=== PATIENT | male | born 1940 | race Caucasian/White ===

== ENCOUNTER 2018-09-22 17:26 | Emergency (ER) | payer OTHER ==
--- NOTE | 2018-09-22 17:36 | EDPHY ---
HPI/HX/ROS/PE/MDM Narrative: CHIEF COMPLAINT: Chest pain, neck pain, chills, nausea/vomiting HPI: This patient is an anticoagulated 78 year old male with history of hypertension , hyperlipidemia, atrial fibrillation, diabetes mellitus. He arrives today with his family complaining of chest pain, neck pain, chills, nausea, and vomiting. His symptoms began last night when he woke from sleep with a neck ache and chest discomfort. He endorses nausea and had several episodes of vomiting. Today , he has had nothing to eat or drink and continues to complain of neck pain and chest discomfort. The chest pain is intermittent, lasting several seconds, and is sometimes sharp, sometimes dull. His family at bedside noted he had an episode of shivering about one hour prior to arrival, but this has resolved. The patient denies headache, shortness of breath, diarrhea, numbness or tingling in his extremities, or other associated symptoms. REVIEW OF SYSTEMS: A comprehensive 10 system review of systems is otherwise negative aside from elements mentioned in the history of present illness and medical decision making. PMH: Hypertension (metoprolol, lisinopril), hyperlipidemia (pravastatin), atrial fibrillation , diabetes mellitus (metformin). Pacemaker placed. SOCIAL HISTORY: [employer] in [place]. Family at bedside. . PHYSICAL EXAM: General:Patient is alert, in no acute distress. ENT:Eyes are normal to inspection. ENT inspection normal. Neck: Normal inspection. Full range of motion. Respiratory:No respiratory distress. Breath sounds normal bilaterally. Cardiovascular: Regular rate and rhythm. Strong peripheral pulses. Normal cap refill. Abdomen:The abdomen is nontender to palpation. There are no peritoneal signs. There are normal bowel sounds. Back: Normal to inspection. No tenderness to palpation. Skin: Normal color. No rash. Warm and dry. Extremities: Normal appearance. Full range of motion. Neuro: Oriented x3. Normal motor function. Normal sensory function. ED Course: 78 year old male with history of hypertension, hyperlipidemia, atrial fibrillation, diabetes mellitus presents with chest pain, neck pain, chills, nausea, and vomiting. Plan for EKG, chest x-ray, labs including CBC, chemistries , troponin, co-ag panel, d-dimer. Plan to administer 1l IV NS and 4mg IV Zofran for symptom relief. EKG was ordered and interpreted by myself. Please see [employer] system for official reading. Reviewed laboratory studies. Troponin negative. D-dimer is elevated at 0.85. The patient is anticoagulated, on Eliquis. No shortness of breath. CXR negative for pneumonia. Reassessed patient. Discussed imaging and laboratory results. I offered admission as well as further testing including CTA chest to r/o PE or other acute processes. THe patient and his family decline and would like to be discharged home. They understand my recommendation for admission and continue to wish to go home at this time. Plan to discharge home in good condition. Follow up and strict return precautions discussed. The patient and his family are aware that he may return to the emergency department at ay time for persistent or worsening symptoms. They are comfortable with this plan. MDM: This patient presents with a multitude of symptoms - of most concern is chest pain, but this is fairly atypical, lasting only a second at a time and alternately sharp or dull. He complains of neck pain but also says this is chronic. He was initially nauseated but this, as well as all his symptoms, have now resolved. I had an extensive discussion with the patient and multiple family members in the room. I explained that I see no signs of ACS, but that the patient's risk factors place him at elevated risk and that the safest course of action would be to admit him overnight for additional testing and evaluation. The patient refuses this however and would like to go home. They tell me that they live [place] [address] from [facility] where they get all their care, and would prefer to go home and go to that hospital if symptoms recur. I explained that the ECG is abnormal and that I have no comparison available. They understand this. The patient also initially indicated that he was on Coumadin, but apparently was switched to Eliquis two weeks ago which he has been taking faithfully. I think given this new fact, PE is unlikely. I offered them this test as well, which they also refused. - Data Points Imaging Results: Imaging Impressions Chest X-Ray 09/22/18 17:28 Impression: 1. Suspect airways disease. 2. See above report for additional findings. Imaging: I viewed and interpreted images myself Laboratory Results: Laboratory Results 09/22/18 17:40 09/22/18 17:40 09/22/18 09/22/18 09/22/18 17:47 17:40 17:40 WBC RBC Hgb Hct MCV MCH MCHC RDW Plt Count MPV Neut % (Auto) Lymph % (Auto) [place] % (Auto) Eos % (Auto) Baso % (Auto) Nucleat RBC Rel Count Absolute Neuts (auto) Absolute Lymphs (auto) Absolute Monos (auto) Absolute Eos (auto) Absolute Basos (auto) Absolute Nucleated RBC Immature Gran % Immature Gran # PT 15.1 SEC H SEC (12.0-15.0) INR 1.24 H (0.83-1.16) APTT 34.6 SEC SEC (23.0-38.0) D-Dimer 0.85 ug/mLFEU H ug/mLFEU (0.00-0.50) Sodium Potassium Chloride Carbon Dioxide Anion Gap BUN Creatinine Estimated GFR Glucose Calcium POC Troponin I 0.00 ng/mL ng/mL (0.00-0.08) 09/22/18 09/22/18 17:40 17:40 WBC 9.47 10^3/uL 10^3/uL (3.80-9.50) RBC 5.48 10^6/uL 10^6/uL (4.40-6.38) Hgb 17.7 g/dL H g/dL (13.7-17.5) Hct 52.0 % H % (40.0-51.0) MCV 94.9 fL fL (81.5-99.8) MCH 32.3 pg pg (27.9-34.1) MCHC 34.0 g/dL g/dL (32.4-36.7) RDW 13.9 % % (11.5-15.2) Plt Count 263 10^3/uL 10^3/uL (150-400) MPV 8.9 fL fL (8.7-11.7) Neut % (Auto) 85.5 % H % (39.3-74.2) Lymph % (Auto) 8.0 % L % (15.0-45.0) [place] % (Auto) 5.6 % % (4.5-13.0) Eos % (Auto) 0.2 % L % (0.6-7.6) Baso % (Auto) 0.3 % % (0.3-1.7) Nucleat RBC Rel Count 0.0 % % (0.0-0.2) Absolute Neuts (auto) 8.09 10^3/uL H 10^3/uL (1.70-6.50) Absolute Lymphs (auto) 0.76 10^3/uL L 10^3/uL (1.00-3.00) Absolute Monos (auto) 0.53 10^3/uL 10^3/uL (0.30-0.80) Absolute Eos (auto) 0.02 10^3/uL L 10^3/uL (0.03-0.40) Absolute Basos (auto) 0.03 10^3/uL 10^3/uL (0.02-0.10) Absolute Nucleated RBC 0.00 10^3/uL 10^3/uL (0-0.01) Immature Gran % 0.4 % % (0.0-1.1) Immature Gran # 0.04 10^3/uL 10^3/uL (0.00-0.10) PT INR APTT D-Dimer Sodium 139 mEq/L mEq/L (135-145) Potassium 4.7 mEq/L mEq/L (3.5-5.2) Chloride 105 mEq/L mEq/L (97-110) Carbon Dioxide 23 mEq/l mEq/l (22-31) Anion Gap 11 mEq/L mEq/L (6-14) BUN 30 mg/dL H mg/dL (7-23) Creatinine 1.3 mg/dL mg/dL (0.7-1.3) Estimated GFR 54 Glucose 127 mg/dL H mg/dL (70-100) Calcium 10.3 mg/dL mg/dL (8.5-10.4) POC Troponin I Medications Given: Discontinued Medications Sodium Chloride (Ns) 1,000 mls @ 0 mls/hr IV ONCE ONE PRN Reason: Wide Open Stop: 09/22/18 17:39 Last Admin: 09/22/18 17:43 Dose: 1,000 mls Ondansetron HCl (Zofran) 4 mg IVP EDNOW ONE Stop: 09/22/18 17:39 Last Admin: 09/22/18 17:43 Dose: 4 mg Point of Care Test Results: Chemistry 09/22/18 17:47 POC Troponin I 0.00 ng/mL ng/mL (0.00-0.08) General Initial Vital Signs: Initial Vital Signs Temperature (C) 37.4 C 09/22/18 17:30 Heart Rate 96 09/22/18 17:30 Respiratory Rate 18 09/22/18 17:30 Blood Pressure 125/82 H 09/22/18 17:30 O2 Sat (%) 91 L 09/22/18 17:30 O2 Delivery Mode Nasal Cannula O2 (L/minute) 2 Allergies/Adverse Reactions: No Known Allergies Allergy (Unverified 09/22/18 17:28) Home Medications: Medication Instructions Recorded Eliquis 09/22/18 FENOFIBRATE 09/22/18 Lisinopril 09/22/18 Metformin 1000 mg 09/22/18 Metoprolol Succinate 09/22/18 Pravastatin Sodium 09/22/18 Departure - Departure Disposition: Home, Routine, Self-Care Clinical Impression: Nausea, Neck pain Chest pain Qualifiers: Chest pain type: unspecified Qualified Code(s): R07.9 - Chest pain, unspecified Condition: Good Instructions: Chest Pain (ED) Additional Instructions: Follow-up with your primary doctor within 72 hours. Return to the Emergency Department for fever, chest pain, shortness of breath, increasing pain or other worsening of condition. Referrals: [facility] [Other] - As per Instructions Report Scribed for: Anatoly Lambert Report Scribed by: Ara Iyer Date of Report: 09/22/18 Time of Report: 17:36 Physician Review and Approval Statement: Portions of this note were transcribed by an ED scribe. I personally performed the history, physical exam, and medical decision making; and confirm the accuracy of the information in the transcribed note.
[2018-09-22] MEDS ORDERED: NS 1,000 ML IV ONE (17:38)
[2018-09-22] MEDS ORDERED: ONDANSETRON 4 MG/2 ML VIAL IVP ONE (17:38)
[2018-09-22 17:55] LABS: PLATELET COUNT 263 10^3/uL (150-400)
[2018-09-22 18:03] LABS: INR 1.24 (0.83-1.16); PROTIME(PATIENT) 15.1 SEC (12.0-15.0)
[2018-09-22 18:42] VITALS: BP 141/71
--- NOTE | 2018-09-22 22:49 | CPEKG ---
Test Reason : OPEN Blood Pressure : / mmHG Vent. Rate : 092 BPM Atrial Rate : 093 BPM P-R Int : 144 ms QRS Dur : 136 ms QT Int : 348 ms P-R-T Axes : 036 -81 005 degrees QTc Int : 431 ms Sinus rhythm Right bundle branch block Minimal ST elevation, lateral leads Confirmed by Anatoly Lambert [id number] on 09/22/2018 10:48:54 PM Referred By: Anatoly Lambert Confirmed By:Anatoly Lambert
== END 2018-09-22 19:18 | disposition home or self-care (01) ==
DX: M54.2 Cervicalgia (principal); R11.2 Nausea with vomiting, unspecified; E86.9 Volume depletion, unspecified; I10 Essential (primary) hypertension; E11.9 Type 2 diabetes mellitus without complications; I48.91 Unspecified atrial fibrillation; E78.5 Hyperlipidemia, unspecified; Z95.0 Presence of cardiac pacemaker; Z79.899 Other long term (current) drug therapy
CPT/HCPCS: 71046; 93005; 96361; 96374; 99285; J2405; 84484-ER